=== PATIENT | female | born 1990 | race American Indian/Alaskan Native ===

== ENCOUNTER 2016-08-13 06:14 | Day surgery (SDC) | payer BC ==
[2016-07-18 08:27] VITALS: BMI 21.2
[2016-08-13 06:43] VITALS: O2SAT 100
[2016-08-13] MEDS ORDERED: ceFAZolin IV 2 gm in Dextrose 50 ML IVPB ONE (07:16)
[2016-08-13] MEDS ORDERED: EPINEPHrine 1:1000 Nasal Sol(30mL) ONE (07:17)
[2016-08-13] MEDS ORDERED: Propofol 10 mg/ml Inj (20 ML) ONE (07:40)
[2016-08-13] MEDS ORDERED: Midazolam 2 MG/2 ML VIAL ONE (07:40)
--- NOTE | 2016-08-13 07:44 | CP.SDSHP ---
Same Day Surgery H & P - History Proposed Procedure: Right knee arthroscopic ACL reconstruction, meniscal repair vs partial meniscectomy, possible chondroplasty vs microfracture Pre-Op Diagnosis: Right knee ACL tear, mensical tear, chondromalacia - Previous Medical/Surgical History Comments: denies PMH Previous Surgical History: denies PSH - Allergies Allergies: Allergies No Known Allergies Allergy (Verified 07/18/16 08:25) - Physical Exam Vital Signs: Vital Signs 08/13/16 06:32 Temperature 97.8 F Pulse Rate 72 Respiratory 18 Rate Blood Pressure 133/73 O2 Sat by Pulse 100 Oximetry Mental Status: Alert & Oriented x3 Heart: WNL Lungs: WNL GI: WNL - {Optional Preform as Required} Ortho: Other (RLE; +ROM ankle/toes, sensation intact, +DP/PT pulses, calves soft NT neg homans) Other Pertinent Findings: Patient Name / ID : KRYSTA Walton [id number]. Exam Date : 07/18/2016 08:48:59 ( Approved ). Study Comment : Sex / Age : F / 26Y. Creator : Ramone Cortez MD. Dictator : Ramone Cortez MD. Occupational Therapy Professor : Seater Assembler : Ramone Cortez MD. Approver2 : Report Date : 07/18 11:57:47. My Comment : . HISTORY: PREOP O.R 08/08. COMPARISON: No prior. TECHNIQUE: Chest PA and lateral. FINDINGS: LUNGS: No active pulmonary disease. PLEURA: No significant pleural effusion identified. No pneumothorax apparent. CARDIOVASCULAR: Normal. OSSEOUS STRUCTURES: No significant abnormalities. VISUALIZED UPPER ABDOMEN: Normal. OTHER FINDINGS: None. IMPRESSION: No active disease. Patient Name / ID : KRYSTA CASTREJON / [id number]. Exam Date : 07/18/2016 09:20:12 ( Approved ). Study Comment : Sex / Age : F / 26Y. Creator : Jillian Urias. Dictator : Occupational Therapy Professor : Seater Assembler : Jillian Urias. Approver2 : Report Date : 07/19/2016 11:51: 23. My Comment : . APPROVED REPORT . EKG Measurement. Heart [id number]. AR [id number]. [id number]. [id number]. [id number]. < Conclusion>. Sinus bradycardia with sinus arrhythmia. Otherwise normal ECG - Impression Impression: 26F with right knee ACL tear for arthroscopy. Medical clearance on chart Dr. Carin Broussard Pt. Evaluated Today:Candidate for Anesthesia & Procedure: Yes - Date & Time Date: 08/13/16 Time: 07:45 Short Stay Discharge - Short Stay Discharge Admitting Diagnosis/Reason for Visit: ACL / MEDIAL MENISCUS TEAR /PATELLA CHONDROMALACIA Disposition: HOME/ ROUTINE
[2016-08-13] MEDS ORDERED: Lactated Ringer's 1,000 ML IV ONE ×2 (08:30→10:30)
[2016-08-13] MEDS ORDERED: Rocuronium 10 mg/ml (5 ml) ONE (09:13)
[2016-08-13] MEDS ORDERED: Neostigmine Methylsulfate 3mg/3ml Syringe IV ONE (10:04)
[2016-08-13] MEDS ORDERED: Morphine 4 MG/ML VIAL ONE ×3 (11:13→11:25)
[2016-08-13] MEDS ORDERED: Oxycodone/Acetaminophen 5/325 mg Tab PO PRN (11:53)
--- NOTE | 2016-08-13 11:57 | PCM.SURG1 ---
Surgeon's Initial Post Op Note - Surgeon's Notes Surgeon: Jemma Collins MD Food Order Expediter: Yari Tolbert PA-C Type of Anesthesia: General Endo Anesthesia Administered By: Dr. Harvey/Abraham YOUNG Pre-Operative Diagnosis: Right knee ACL tear, medial meniscal tear, chondromalacia Operative Findings: Tourniquet: not used Post-Operative Diagnosis: same. lateral meniscal tear Operation Performed: 1. Right knee arthroscopic ACL reconstruction with allograft. 2. Arthroscopic lateral meniscal tear. 3. Arthroscopic partial meniscal meniscectomy. 4. Microfracture medial femoral condyle. 5. Removal of loose body Specimen/Specimens Removed: loose bodies x 2 Estimated Blood Loss: EBL {In ML}: 10 Blood Products Given: N/A Drains Used: No Drains Post-Op Condition: Fair Date of Surgery/Procedure: 08/13/16 Time of Surgery/Procedure: 11:59
[2016-08-13] MEDS ORDERED: Sodium Chloride 0.9% 20 ML IV ONE (12:02)
[2016-08-13] MEDS ORDERED: Bupivacaine 0.5% Inj(30mL) ONE (12:02)
[2016-08-13] MEDS ORDERED: HYDROmorphone 0.5 mg/0.5 ml ISec IVP PRN (12:04)
[2016-08-13] MEDS ORDERED: HYDROmorphone 0.5 mg/0.5 ml ISec ONE (12:10)
[2016-08-13] MEDS ORDERED: Midazolam 2 MG/2 ML VIAL IVP ONE (12:12)
--- NOTE | 2016-08-13 12:26 | PCM.ANESB7 ---
Adductor Canal Block - Adductor Canal Block Date of Procedure: 08/13/16 Anesthiologist: Wes Pre-Procedure Diagnosis: Right Knee Meniscus Tear Post-Procedure Diagnosis: Right Knee Meniscus Tear Procedure Performed: Adductor Canal Block Right - Procedure Adductor Canal Block: The procedure was explained to the patient that it is for the post-operative pain management. Consent was obtained after a thorough discussion with the patient regarding the benefits and possible complications of local anesthetic adductor canal block of the femoral nerve. Standard monitors, as defined by the ASA, were applied to the patient. Time-out was held with the circulating nurse to confirm the appropriate block. After applying supplemental oxygen and administering IV Sedation as needed, the patient was placed in supine position with and the operative leg was flexed slightly at the knee and externally rotated as needed, and was kept anatomically stable. The mid-thigh of the right lower extremity was exposed. The ultrasound transducer was then applied transversely along the medial aspect, about midway down the thigh and the femoral artery and vein were identified in appropriate relation with the sartorius muscle. At this time, the femoral nerve was visualized lateral to the femoral artery within the canal. After thorough identification, this area area was prepped with Chloroprep solution. At this point, a #22 gauge Stimuplex 4-inch needle was inserted in-plane in a [id number] orientation, and advanced toward the femoral nerve. Advancement was performed carefully under direct ultrasound visualization. . After negative aspiration, 20 cc of 0.25% bupivicaine was injected. Under ultrasound guidance the local anesthetics were observed spreading around the femoral nerve. The needle was removed intact and sterile dressing was applied. The patient had stable vital signs, was conscious and in no apparent distress. The patient tolerated the femoral nerve block well with stable vital signs and was prepared for subsequent surgery
[2016-08-13 16:20] VITALS: BP 120/60; PULSE 60; RESP 18; TEMP 97.8
== END 2016-08-13 14:30 | disposition home or self-care (01) ==
LOC: C.SDS 06:14
PROVIDERS: ATTEND Student in an Organized Health Care Education/Training Program
DX: S83.206A Unspecified tear of unspecified meniscus, current injury, right knee, initial encounter (principal); M22.41 Chondromalacia patellae, right knee; X58.XXXA Exposure to other specified factors, initial encounter; S83.421A Sprain of lateral collateral ligament of right knee, initial encounter
CPT/HCPCS: 64447; 88305; J0690; J1100; J1170; J1885; J2001; J2250; J2270; J2405; J2704; J2710; J3010; J7120